=== PATIENT | female | born 1970 | race Caucasian/White ===

== ENCOUNTER → 2025-04-06 08:19 | Outpatient (CLI) | payer BC, SELFPAY ==
[2025-04-06 09:44] LABS: Glucose 140 mg/dL (70-99)
[2025-04-08 07:09] LABS: Insulin Level Total 11.7 uIU/mL (2.6-24.9)
== END ==
PROVIDERS: Referring Provider Nurse Practitioner; Visit Provider Nurse Practitioner
DX: E89.1 Postprocedural hypoinsulinemia (principal)
CPT/HCPCS: 36415; 82947; 83525; 84206; 84681; 86337; 86341